=== PATIENT | male | born 1960 | race Caucasian/White ===

== ENCOUNTER 2025-05-06 17:46 | Observation (INO) | payer BC, SELFPAY ==
[2025-05-06 14:29] VITALS: BP 140/75; BMI 25.9
[2025-05-06 14:43] LABS: Hematocrit 39.0 % (39.0-52.0); Hemoglobin 13.4 g/dL (13.0-18.0); Mean Corp Hgb Conc. 34.4 g/dL (33.0-37.0); Mean Corpuscular Volume 94.4 fL (80.0-94.0); Nucleated Red Blood Cells % 0 % (-); Platelet Count 257 10^3/uL (130-400); Red Cell Dist. Width 12.1 % (11.5-14.5)
[2025-05-06 15:00] VITALS: BP 135/84
[2025-05-06 15:06] LABS: ALT (SGPT) 22 U/L (0-50); AST (SGOT) 21 U/L (17-59); Albumin 4.2 g/dl (3.5-5.0); Alkaline Phosphatase 53 U/L (38-126); Blood Urea Nitrogen 16 mg/dl (9-20); Calcium 9.3 mg/dl (8.4-10.2); Carbon Dioxide 26 mmol/L (22-30); Chloride 103 mmol/L (98-107); Estimated Creatinine Clearance 75 ml/min; Glucose 125 mg/dl (70-99); Potassium 4.1 mmol/L (3.5-5.1); Sodium 134 mmol/L (135-145); Total Protein 6.6 g/dl (6.3-8.2); eGFR > 60.00
[2025-05-06 15:18] LABS: Troponin I 0.018 ng/ml
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
[2025-05-06 16:00] VITALS: BP 146/78
[2025-05-06 16:25] VITALS: BP 141/102; BP 146/73; BP 149/81; PULSE 45; PULSE 46; PULSE 48
[2025-05-06 16:39] LABS: COVID-19 Antigen Negative (Negative)
[2025-05-06 18:12] VITALS: BP 151/84; BMI 25.0
[2025-05-06 19:45] VITALS: BP 128/71
[2025-05-06] MEDS: HEPARIN 5000 UNITS SC (20:06)
[2025-05-06] MEDS: TAMIFLU 75 MG PO (20:06)
[2025-05-07 00:13] VITALS: BP 142/78
[2025-05-07 02:55] VITALS: BP 116/63
[2025-05-07 07:20] VITALS: BP 130/72
[2025-05-07 07:21] LABS: Hematocrit 38.6 % (39.0-52.0); Hemoglobin 13.2 g/dL (13.0-18.0); Mean Corp Hgb Conc. 34.2 g/dL (33.0-37.0); Mean Corpuscular Volume 95.5 fL (80.0-94.0); Nucleated Red Blood Cells % 0 % (-); Platelet Count 237 10^3/uL (130-400); Red Cell Dist. Width 12.1 % (11.5-14.5)
[2025-05-07 07:56] LABS: ALT (SGPT) 20 U/L (0-50); AST (SGOT) 20 U/L (17-59); Albumin 3.9 g/dl (3.5-5.0); Alkaline Phosphatase 50 U/L (38-126); Blood Urea Nitrogen 12 mg/dl (9-20); Calcium 9.2 mg/dl (8.4-10.2); Carbon Dioxide 27 mmol/L (22-30); Chloride 106 mmol/L (98-107); Estimated Creatinine Clearance 75 ml/min; Glucose 86 mg/dl (70-99); Magnesium 2.2 mg/dl (1.6-2.3); Potassium 4.5 mmol/L (3.5-5.1); Sodium 134 mmol/L (135-145); Total Protein 6.4 g/dl (6.3-8.2); eGFR > 60.00
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
[2025-05-07] MEDS: TAMIFLU 75 MG PO (10:16)
[2025-05-07] MEDS: HEPARIN SC (10:17)
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
[2025-05-07 13:42] VITALS: BP 163/87
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
== END 2025-05-07 16:24 | disposition home or self-care (01) ==
LOC: 4 WEST ACU 17:46
PROVIDERS: Clinical Nurse Specialist Family Health; ADMITTING PHYSICIAN Hospitalist; ATTENDING PHYSICIAN General Practice; CONSULT PHYSICIAN Student in an Organized Health Care Education/Training Program; EMERGENCY PHYSICIAN Emergency Medicine
DX: J10.1 Influenza due to other identified influenza virus with other respiratory manifestations (principal); R55 Syncope and collapse; R53.83 Other fatigue; R42 Dizziness and giddiness; R00.1 Bradycardia, unspecified; I49.9 Cardiac arrhythmia, unspecified; R41.0 Disorientation, unspecified; Z11.52 Encounter for screening for COVID-19
CPT/HCPCS: 70450; 80053; 83735; 84484; 85025; 87502; 87811; 93005; 93306; 97162; 99284; G0378